=== PATIENT | male | born 1990 | race African-American/Black ===

== ENCOUNTER 2017-12-02 05:58 | Emergency (ER) | payer SELFPAY ==
[~2017-12-02] VITALS: Ht 170.2 cm; Wt 87.0 kg
[2017-12-02 07:41] VITALS: BP 143/96
== END 2017-12-02 07:43 | disposition home or self-care (01) ==
LOC: ER 06:10
DX: F32.9 Major depressive disorder, single episode, unspecified (principal); F41.9 Anxiety disorder, unspecified; F64.9 Gender identity disorder, unspecified; G40.909 Epilepsy, unspecified, not intractable, without status epilepticus; R06.00 Dyspnea, unspecified
CPT/HCPCS: 71045; 82962; 99283; 99284

== ENCOUNTER 2017-12-04 22:06 | Emergency (ER) | payer SELFPAY ==
[~2017-12-04] VITALS: Ht 170.2 cm; Wt 71.0 kg
[2017-12-04 22:15] VITALS: BP 130/96
== END 2017-12-05 | disposition left against medical advice (07) ==
LOC: ER 22:23
DX: Z53.21 Procedure and treatment not carried out due to patient leaving prior to being seen by health care provider (principal)